=== PATIENT | female | born 1990 | race Caucasian/White ===

== ENCOUNTER 2022-08-21 18:40 | Emergency (ER) | payer OTHER | END 2022-08-21 19:10 | disposition home or self-care (01) | LOC: VM.ED 18:40 | DX: O99.891 Other specified diseases and conditions complicating pregnancy (principal); M54.2 Cervicalgia; Z3A.25 25 weeks gestation of pregnancy; V89.2XXA Person injured in unspecified motor-vehicle accident, traffic, initial encounter; Y92.410 Unspecified street and highway as the place of occurrence of the external cause | CPT/HCPCS: 99283; 99284 ==